=== PATIENT | female | born 1965 | race African-American/Black ===

== ENCOUNTER 2023-07-07 10:33 | Inpatient (IN) | payer BC ==
[2023-07-07 11:42] VITALS: BMI 21.8
[2023-07-07] MEDS ORDERED: IBUPROFEN 600 MG TABLET (FP) PO PRN (12:10)
[2023-07-07] MEDS ORDERED: ONDANSETRON *ODT* 4 MG TABLET SL PRN (12:10)
[2023-07-07] MEDS ORDERED: IBUPROFEN 400 MG TABLET (FP) PO PRN (12:10)
[2023-07-07] MEDS ORDERED: NALOXONE HCL (KLOXXADO) 8 MG SPRAY NS PRN (12:10)
[2023-07-07] MEDS ORDERED: BISMUTH SUBSALICYLATE 262 MG/15 ML BTL PO PRN (12:10)
[2023-07-07] MEDS ORDERED: hydrOXYzine PAMOATE 25 MG CAPSULE (FP) PO PRN (12:10)
[2023-07-07] MEDS ORDERED: ACETAMINOPHEN 325 MG TABLET (FP) PO PRN (12:10)
[2023-07-07] MEDS ORDERED: guaiFENesin 600 MG TABLET.ER (FP) PO PRN (12:10)
[2023-07-07] MEDS ORDERED: MAGNESIUM HYDROX 2400MG/30ML ORAL SUSPENSION 30 ML CUP PO PRN (12:10)
[2023-07-07] MEDS ORDERED: POLYETHYLENE GLYCOL (HEALTHYLAX) 3350 17 GM PACKET PO PRN (12:10)
[2023-07-07] MEDS ORDERED: BENZONATATE 200 MG CAPSULE PO PRN (12:10)
[2023-07-07] MEDS ORDERED: NALOXONE HCL 0.4 MG/ML VIAL IM PRN (12:10)
[2023-07-07] MEDS ORDERED: NICOTINE POLACRILEX 2 MG GUM BUC PRN (12:10)
[2023-07-07] MEDS ORDERED: BENZOCAINE/MENTHOL (CHLORASEPTIC ) LOZENGE MM PRN (12:10)
[2023-07-07] MEDS ORDERED: LOPERAMIDE HCL 2 MG CAPSULE PO PRN (12:10)
[2023-07-07 16:19] LABS: HEMATOCRIT 41.6 % (32.4-45.2); HEMOGLOBIN 14.1 GM/dL (10.7-15.3); MCH 29.6 pg (25.7-33.7); MEAN PLT VOLUME 8.2 fl (7.5-11.1); PLATELET COUNT 294 10^3/uL (134-434); RBC 4.78 M/mm3 (3.60-5.2); RDW 13.6 % (11.6-15.6); WHITE BLOOD COUNT 4.9 K/mm3 (4.0-10.0)
[2023-07-07 16:23] LABS: POTASSIUM 3.9 mmol/L (3.5-5.1)
[2023-07-07 16:25] LABS: BLOOD UREA NITROGEN 8.7 mg/dL (7-18); CALCIUM 8.5 mg/dL (8.5-10.1)
[2023-07-07 16:26] LABS: ALBUMIN 3.1 g/dl (3.4-5.0)
[2023-07-07 16:30] LABS: CREATININE 0.8 mg/dL (0.55-1.3)
[2023-07-07 16:31] LABS: BILIRUBIN,TOTAL 0.4 mg/dL (0.2-1)
[2023-07-07] MEDS: MELATONIN 5 MG TABLETS PO SCH (22:07)
[2023-07-07] MEDS: THIAMINE HCL 100 MG TABLET (FP) PO SCH (22:07)
[2023-07-07] MEDS: METHOCARBAMOL 500 MG TABLET PO PRN (22:09)
[2023-07-08] MEDS: PRENATAL VITAMINS W/ FOLIC ACID TABLET (FP) PO SCH (09:13)
[2023-07-08] MEDS: NICOTINE 14 MG/24 HOURS TOPICAL PATCH TD SCH (09:13)
[2023-07-08] MEDS ORDERED: chlordiazePOXIDE HCL 25 MG CAPSULE PO PRN (10:07)
[2023-07-08] MEDS: chlordiazePOXIDE HCL 25 MG CAPSULE PO SCH ×3 (10:50→22:16)
[2023-07-08] MEDS: METHOCARBAMOL 500 MG TABLET PO PRN ×2 (10:53→22:17)
[2023-07-08] MEDS: valACYclovir HCL 500 MG TABLET (FP) PO SCH (11:23)
[2023-07-08] MEDS: EMTRICITAB/RILPIVIRI/TENOF ALA (ODEFSEY) TABLET PO SCH (12:37)
[2023-07-08] MEDS: MAG HYDROX/AL HYDROX/SIMETH 30 ML UNIT-DOSE CUP PO PRN (16:44)
[2023-07-08] MEDS: MELATONIN 5 MG TABLETS PO SCH (22:16)
[2023-07-08] MEDS: THIAMINE HCL 100 MG TABLET (FP) PO SCH (22:16)
[2023-07-09] MEDS: chlordiazePOXIDE HCL 25 MG CAPSULE PO SCH ×4 (05:45→22:45)
[2023-07-09] MEDS: valACYclovir HCL 500 MG TABLET (FP) PO SCH (10:17)
[2023-07-09] MEDS: PRENATAL VITAMINS W/ FOLIC ACID TABLET (FP) PO SCH (10:17)
[2023-07-09] MEDS: NICOTINE 14 MG/24 HOURS TOPICAL PATCH TD SCH (10:17)
[2023-07-09] MEDS: EMTRICITAB/RILPIVIRI/TENOF ALA (ODEFSEY) TABLET PO SCH (10:17)
[2023-07-09] MEDS: METHOCARBAMOL 500 MG TABLET PO PRN (10:18)
[2023-07-09] MEDS: MAG HYDROX/AL HYDROX/SIMETH 30 ML UNIT-DOSE CUP PO PRN (19:10)
[2023-07-09] MEDS ORDERED: QUEtiapine FUMARATE 25 MG TABLET PO ONE (22:00)
[2023-07-09] MEDS: THIAMINE HCL 100 MG TABLET (FP) PO SCH (22:45)
[2023-07-09] MEDS: MELATONIN 5 MG TABLETS PO SCH (22:45)
[2023-07-10] MEDS: chlordiazePOXIDE HCL 25 MG CAPSULE PO SCH ×2 (05:22→10:35)
[2023-07-10] MEDS: valACYclovir HCL 500 MG TABLET (FP) PO SCH (09:46)
[2023-07-10] MEDS: EMTRICITAB/RILPIVIRI/TENOF ALA (ODEFSEY) TABLET PO SCH (09:46)
[2023-07-10] MEDS: PRENATAL VITAMINS W/ FOLIC ACID TABLET (FP) PO SCH (09:46)
[2023-07-10] MEDS: NICOTINE 14 MG/24 HOURS TOPICAL PATCH TD SCH ×2 (09:48→09:52)
[2023-07-10] MEDS ORDERED: LORazepam 1 MG TABLET PO PRN (10:49)
[2023-07-10] MEDS ORDERED: LORazepam 2 MG TABLET PO SCH (11:00)
[2023-07-10 11:39] VITALS: PULSE 90
[2023-07-10] MEDS ORDERED: METHOCARBAMOL 750 MG TABLET PO SCH (12:00)
[2023-07-10 14:22] VITALS: BP 137/77; RESP 18; TEMP 97.8
[2023-07-11] MEDS ORDERED: chlordiazePOXIDE HCL 10 MG CAPSULE PO PRN
[2023-07-11] MEDS ORDERED: chlordiazePOXIDE HCL 10 MG CAPSULE PO SCH (05:00)
[2023-07-11] MEDS ORDERED: LORazepam 1 MG TABLET PO SCH (05:00)
[2023-07-12] MEDS ORDERED: LORazepam 0.5 MG TABLET PO PRN
[2023-07-12] MEDS ORDERED: chlordiazePOXIDE HCL 10 MG CAPSULE PO SCH (05:00)
[2023-07-12] MEDS ORDERED: LORazepam 0.5 MG TABLET PO SCH (05:00)
[2023-07-13] MEDS ORDERED: chlordiazePOXIDE HCL 10 MG CAPSULE PO ONE (05:00)
== END 2023-07-10 15:25 | disposition left against medical advice (07) | DRG 770 ==
LOC: YASAS 10:33 → Y3N 14:41
PROVIDERS: ADMIT Allergy & Immunology; ATTEND Surgery
PROC: HZ2ZZZZ Detoxification Services for Substance Abuse Treatment (ICD-10-PCS; principal; 2023-07-07)
DX: F10.230 Alcohol dependence with withdrawal, uncomplicated (principal); F14.20 Cocaine dependence, uncomplicated; F12.20 Cannabis dependence, uncomplicated; F17.210 Nicotine dependence, cigarettes, uncomplicated; F19.24 Other psychoactive substance dependence with psychoactive substance-induced mood disorder; Z21 Asymptomatic human immunodeficiency virus [HIV] infection status; E78.5 Hyperlipidemia, unspecified; K21.9 Gastro-esophageal reflux disease without esophagitis; R76.8 Other specified abnormal immunological findings in serum; Z86.718 Personal history of other venous thrombosis and embolism; Z86.11 Personal history of tuberculosis; Z88.0 Allergy status to penicillin
CPT/HCPCS: 36415; 71046-TC-FY; 80053; 80307; 85027; 86593; 86780; 87635; 87811; 93005; 93010; Q0162

== ENCOUNTER 2023-08-27 19:16 | Inpatient (IN) | payer BC ==
[2023-08-27 20:18] VITALS: BMI 21.8
[2023-08-27] MEDS ORDERED: DICYCLOMINE HCL 10 MG CAPSULE PO PRN (21:10)
[2023-08-27] MEDS ORDERED: ONDANSETRON *ODT* 4 MG TABLET SL PRN (21:10)
[2023-08-27] MEDS ORDERED: guaiFENesin 600 MG TABLET.ER (FP) PO PRN (21:10)
[2023-08-27] MEDS ORDERED: MAGNESIUM HYDROX 2400MG/30ML ORAL SUSPENSION 30 ML CUP PO PRN (21:10)
[2023-08-27] MEDS ORDERED: NICOTINE POLACRILEX 2 MG LOZENGE BC PRN (21:10)
[2023-08-27] MEDS ORDERED: BENZONATATE 200 MG CAPSULE PO PRN (21:10)
[2023-08-27] MEDS ORDERED: POLYETHYLENE GLYCOL (HEALTHYLAX) 3350 17 GM PACKET PO PRN (21:10)
[2023-08-27] MEDS ORDERED: IBUPROFEN 400 MG TABLET (FP) PO PRN (21:10)
[2023-08-27] MEDS ORDERED: ACETAMINOPHEN 325 MG TABLET (FP) PO PRN (21:10)
[2023-08-27] MEDS ORDERED: P-EPHED 60MG/TRIPROLIDI 2.5MG TABLET PO PRN (21:10)
[2023-08-27] MEDS ORDERED: MAG HYDROX/AL HYDROX/SIMETH 30 ML UNIT-DOSE CUP PO PRN (21:10)
[2023-08-27] MEDS ORDERED: BISMUTH SUBSALICYLATE 524 MG/30 ML PO PRN (21:10)
[2023-08-27] MEDS ORDERED: LOPERAMIDE HCL 2 MG CAPSULE PO PRN (21:10)
[2023-08-27] MEDS: THIAMINE HCL 100 MG TABLET (FP) PO SCH (22:03)
[2023-08-27] MEDS: MELATONIN 5 MG TABLETS PO SCH (22:03)
[2023-08-28] MEDS: diazePAM 5 MG TABLET PO SCH ×3 (10:23→22:10)
[2023-08-28] MEDS: PRENATAL VITAMINS W/ FOLIC ACID TABLET (FP) PO SCH (10:23)
[2023-08-28] MEDS: NICOTINE 7 MG/24 HOURS TOPICAL PATCH TD SCH (10:24)
[2023-08-28] MEDS: valACYclovir HCL 500 MG TABLET (FP) PO SCH (11:03)
[2023-08-28] MEDS: EMTRICITAB/RILPIVIRI/TENOF ALA (ODEFSEY) TABLET PO SCH (11:03)
[2023-08-28 11:16] LABS: HEMATOCRIT 40.5 % (32.4-45.2); HEMOGLOBIN 13.3 GM/dL (10.7-15.3); MCH 28.2 pg (25.7-33.7); MCHC 32.8 g/dl (32.0-36.0); MEAN PLT VOLUME 7.2 fl (7.5-11.1); PLATELET COUNT 358 10^3/uL (134-434); RBC 4.71 M/mm3 (3.60-5.2); RDW 14.7 % (11.6-15.6); WHITE BLOOD COUNT 5.2 K/mm3 (4.0-10.0)
[2023-08-28 11:34] LABS: CHLORIDE 110 mmol/L (98-107); POTASSIUM 4.3 mmol/L (3.5-5.1); SODIUM 142 mmol/L (136-145)
[2023-08-28 11:37] LABS: ALBUMIN 2.9 g/dl (3.4-5.0); ANION GAP 5 mmol/L (4-13); BLOOD UREA NITROGEN 9.8 mg/dL (7-18); CO2 26 mmol/L (21-32); GLUCOSE,RANDOM 94 mg/dL (74-106)
[2023-08-28 11:39] LABS: CREATININE 0.7 mg/dL (0.55-1.3); SGOT/AST 19 U/L (15-37); SGPT/ALT 19 U/L (13-61)
[2023-08-28 11:40] LABS: TOT PROT 7.2 g/dl (6.4-8.2)
[2023-08-28 11:43] LABS: ALK PHOS 100 U/L (45-117)
[2023-08-28 11:45] LABS: BILIRUBIN,TOTAL 0.7 mg/dL (0.2-1)
[2023-08-28] MEDS: METHOCARBAMOL 500 MG TABLET PO PRN (17:19)
[2023-08-28] MEDS: MELATONIN 5 MG TABLETS PO SCH (22:10)
[2023-08-28] MEDS: THIAMINE HCL 100 MG TABLET (FP) PO SCH (22:10)
[2023-08-29] MEDS: diazePAM 5 MG TABLET PO SCH ×3 (05:23→23:03)
[2023-08-29] MEDS: EMTRICITAB/RILPIVIRI/TENOF ALA (ODEFSEY) TABLET PO SCH (07:48)
[2023-08-29] MEDS: NICOTINE 7 MG/24 HOURS TOPICAL PATCH TD SCH (10:14)
[2023-08-29] MEDS: valACYclovir HCL 500 MG TABLET (FP) PO SCH (10:14)
[2023-08-29] MEDS: PRENATAL VITAMINS W/ FOLIC ACID TABLET (FP) PO SCH (10:14)
[2023-08-29] MEDS: IBUPROFEN 600 MG TABLET (FP) PO PRN (10:16)
[2023-08-29] MEDS: METHOCARBAMOL 500 MG TABLET PO PRN (10:17)
[2023-08-29] MEDS: MELATONIN 5 MG TABLETS PO SCH (23:03)
[2023-08-29] MEDS: THIAMINE HCL 100 MG TABLET (FP) PO SCH (23:04)
[2023-08-30] MEDS: diazePAM 5 MG TABLET PO SCH ×2 (06:02→18:23)
[2023-08-30] MEDS: BENZOCAINE/MENTHOL (CHLORASEPTIC ) LOZENGE MM PRN (06:22)
[2023-08-30] MEDS: EMTRICITAB/RILPIVIRI/TENOF ALA (ODEFSEY) TABLET PO SCH (07:28)
[2023-08-30] MEDS: PRENATAL VITAMINS W/ FOLIC ACID TABLET (FP) PO SCH (10:44)
[2023-08-30] MEDS: valACYclovir HCL 500 MG TABLET (FP) PO SCH (10:45)
[2023-08-30] MEDS: NICOTINE 7 MG/24 HOURS TOPICAL PATCH TD SCH (10:45)
[2023-08-30] MEDS: hydrOXYzine PAMOATE 25 MG CAPSULE (FP) PO PRN (10:46)
[2023-08-30] MEDS: METHOCARBAMOL 500 MG TABLET PO PRN ×2 (10:46→18:23)
[2023-08-30] MEDS: IBUPROFEN 600 MG TABLET (FP) PO PRN (11:46)
[2023-08-30] MEDS: MELATONIN 5 MG TABLETS PO SCH (22:45)
[2023-08-30] MEDS: THIAMINE HCL 100 MG TABLET (FP) PO SCH (22:45)
[2023-08-31] MEDS ORDERED: diazePAM 5 MG TABLET PO ONE (06:00)
[2023-08-31] MEDS: BENZOCAINE/MENTHOL (CHLORASEPTIC ) LOZENGE MM PRN (06:14)
[2023-08-31] MEDS: IBUPROFEN 600 MG TABLET (FP) PO PRN (06:15)
[2023-08-31] MEDS: EMTRICITAB/RILPIVIRI/TENOF ALA (ODEFSEY) TABLET PO SCH (07:09)
[2023-08-31] MEDS: METHOCARBAMOL 500 MG TABLET PO PRN ×2 (09:56→22:28)
[2023-08-31] MEDS: valACYclovir HCL 500 MG TABLET (FP) PO SCH (09:56)
[2023-08-31] MEDS: PRENATAL VITAMINS W/ FOLIC ACID TABLET (FP) PO SCH (09:56)
[2023-08-31] MEDS: NICOTINE 7 MG/24 HOURS TOPICAL PATCH TD SCH (09:57)
[2023-08-31 13:21] VITALS: RESP 18
[2023-08-31] MEDS: THIAMINE HCL 100 MG TABLET (FP) PO SCH (22:28)
[2023-08-31] MEDS: MELATONIN 5 MG TABLETS PO SCH (22:28)
[2023-08-31] MEDS: hydrOXYzine PAMOATE 25 MG CAPSULE (FP) PO PRN (22:34)
[2023-09-01] MEDS: EMTRICITAB/RILPIVIRI/TENOF ALA (ODEFSEY) TABLET PO SCH (07:14)
[2023-09-01] MEDS: METHOCARBAMOL 500 MG TABLET PO PRN (07:49)
[2023-09-01 09:14] VITALS: BP 128/82; PULSE 95; TEMP 97.8
[2023-09-01] MEDS: PRENATAL VITAMINS W/ FOLIC ACID TABLET (FP) PO SCH (09:32)
[2023-09-01] MEDS: valACYclovir HCL 500 MG TABLET (FP) PO SCH (09:32)
[2023-09-01] MEDS: NICOTINE 7 MG/24 HOURS TOPICAL PATCH TD SCH (09:32)
== END 2023-09-01 10:18 | disposition home or self-care (01) | DRG 774 ==
LOC: YASAS 19:16 → Y6N 21:27
PROVIDERS: ADMIT Allergy & Immunology; ATTEND Allergy & Immunology
PROC: HZ2ZZZZ Detoxification Services for Substance Abuse Treatment (ICD-10-PCS; principal; 2023-08-27)
DX: F10.230 Alcohol dependence with withdrawal, uncomplicated (principal); F14.20 Cocaine dependence, uncomplicated; F12.20 Cannabis dependence, uncomplicated; F17.210 Nicotine dependence, cigarettes, uncomplicated; U07.1 COVID-19; B20 Human immunodeficiency virus [HIV] disease; Z86.718 Personal history of other venous thrombosis and embolism; Z86.19 Personal history of other infectious and parasitic diseases; Z86.11 Personal history of tuberculosis
CPT/HCPCS: 0241U-QW; 36415; 80053; 80307; 85027; 86593; 86780; 87635

== ENCOUNTER 2023-11-06 21:53 | Inpatient (IN) | payer BC ==
[2023-11-06 23:46] VITALS: BMI 19.9
[2023-11-07] MEDS ORDERED: MAGNESIUM HYDROX 2400MG/30ML ORAL SUSPENSION 30 ML CUP PO PRN (00:45)
[2023-11-07] MEDS ORDERED: NALOXONE HCL (KLOXXADO) 8 MG SPRAY NS PRN (00:45)
[2023-11-07] MEDS ORDERED: guaiFENesin 600 MG TABLET.ER (FP) PO PRN (00:45)
[2023-11-07] MEDS ORDERED: NALOXONE HCL 0.4 MG/ML VIAL IM PRN (00:45)
[2023-11-07] MEDS ORDERED: POLYETHYLENE GLYCOL (HEALTHYLAX) 3350 17 GM PACKET PO PRN (00:45)
[2023-11-07] MEDS ORDERED: DICYCLOMINE HCL 10 MG CAPSULE PO PRN (00:45)
[2023-11-07] MEDS ORDERED: BENZOCAINE/MENTHOL (CHLORASEPTIC ) LOZENGE MM PRN (00:45)
[2023-11-07] MEDS ORDERED: LOPERAMIDE HCL 2 MG CAPSULE PO PRN (00:45)
[2023-11-07] MEDS ORDERED: MAG HYDROX/AL HYDROX/SIMETH 30 ML UNIT-DOSE CUP PO PRN (00:45)
[2023-11-07] MEDS ORDERED: ONDANSETRON *ODT* 4 MG TABLET SL PRN (00:45)
[2023-11-07] MEDS ORDERED: IBUPROFEN 400 MG TABLET (FP) PO PRN (00:45)
[2023-11-07] MEDS ORDERED: BENZONATATE 200 MG CAPSULE PO PRN (00:45)
[2023-11-07] MEDS ORDERED: METHOCARBAMOL 500 MG TABLET ONE (02:05)
[2023-11-07] MEDS ORDERED: ACETAMINOPHEN 325 MG TABLET (FP) ONE (02:05)
[2023-11-07] MEDS: ACETAMINOPHEN 325 MG TABLET (FP) PO PRN (02:09)
[2023-11-07] MEDS: METHOCARBAMOL 500 MG TABLET PO PRN (02:09)
[2023-11-07] MEDS: NICOTINE 14 MG/24 HOURS TOPICAL PATCH TD SCH (09:44)
[2023-11-07] MEDS: PRENATAL VITAMINS W/ FOLIC ACID TABLET (FP) PO SCH (09:44)
[2023-11-07] MEDS: NICOTINE POLACRILEX 2 MG GUM BUC PRN (09:45)
[2023-11-07] MEDS: IBUPROFEN 600 MG TABLET (FP) PO PRN (09:46)
[2023-11-07] MEDS ORDERED: diazePAM 5 MG TABLET PO PRN (10:34)
[2023-11-07] MEDS: diazePAM 5 MG TABLET PO SCH (10:57)
[2023-11-07 11:33] LABS: HEMATOCRIT 40.3 % (32.4-45.2); HEMOGLOBIN 13.1 GM/dL (10.7-15.3); MCH 28.8 pg (25.7-33.7); MCHC 32.5 g/dl (32.0-36.0); MEAN CELL VOLUME 88.6 fl (80-96); MEAN PLT VOLUME 8.4 fl (7.5-11.1); PLATELET COUNT 251 10^3/uL (134-434); RBC 4.55 M/mm3 (3.60-5.2); RDW 14.9 % (11.6-15.6); WHITE BLOOD COUNT 3.8 K/mm3 (4.0-10.0)
[2023-11-07 11:41] LABS: CHLORIDE 104 mmol/L (98-107); POTASSIUM 3.3 mmol/L (3.5-5.1); SODIUM 140 mmol/L (136-145)
[2023-11-07 11:54] LABS: ALBUMIN 3.2 g/dl (3.4-5.0); ANION GAP 3 mmol/L (4-13); BLOOD UREA NITROGEN 16.3 mg/dL (7-18); CO2 32 mmol/L (21-32); GLUCOSE,RANDOM 100 mg/dL (74-106); SGPT/ALT 27 U/L (13-61)
[2023-11-07 11:55] LABS: CREATININE 0.8 mg/dL (0.55-1.3)
[2023-11-07 11:56] LABS: BILIRUBIN,TOTAL 0.6 mg/dL (0.2-1); TOT PROT 6.9 g/dl (6.4-8.2)
[2023-11-07 11:57] LABS: ALK PHOS 129 U/L (45-117); SGOT/AST 26 U/L (15-37)
[2023-11-07] MEDS: valACYclovir HCL 500 MG TABLET (FP) PO SCH (17:39)
[2023-11-07] MEDS: EMTRICITAB/RILPIVIRI/TENOF ALA (ODEFSEY) TABLET PO SCH (19:08)
[2023-11-07] MEDS: THIAMINE HCL 100 MG TABLET (FP) PO SCH (22:37)
[2023-11-07] MEDS: QUEtiapine FUMARATE 50 MG TABLET PO SCH (22:37)
[2023-11-07] MEDS: MELATONIN 5 MG TABLETS PO SCH (22:37)
[2023-11-07] MEDS: BISMUTH SUBSALICYLATE 524 MG/30 ML PO PRN (22:38)
[2023-11-08] MEDS: POTASSIUM CHLORIDE ORAL LIQUID 20 MEQ/15 ML PO ONE (11:26)
[2023-11-09] MEDS: diazePAM 5 MG TABLET PO SCH (05:53)
[2023-11-09 10:00] VITALS: RESP 16
[2023-11-10] MEDS: diazePAM 5 MG TABLET PO SCH (05:41)
[2023-11-10 06:46] VITALS: BP 146/70; PULSE 73; TEMP 97.6
[2023-11-11] MEDS ORDERED: diazePAM 5 MG TABLET PO ONE (06:00)
== END 2023-11-10 07:59 | disposition home or self-care (01) | DRG 774 ==
LOC: YASAS 21:53 → Y6N 11-07 01:47
PROVIDERS: ADMIT Allergy & Immunology; ATTEND Surgery
PROC: HZ2ZZZZ Detoxification Services for Substance Abuse Treatment (ICD-10-PCS; principal; 2023-11-07)
DX: F10.230 Alcohol dependence with withdrawal, uncomplicated (principal); F14.20 Cocaine dependence, uncomplicated; F12.20 Cannabis dependence, uncomplicated; F17.210 Nicotine dependence, cigarettes, uncomplicated; F19.282 Other psychoactive substance dependence with psychoactive substance-induced sleep disorder; F19.280 Other psychoactive substance dependence with psychoactive substance-induced anxiety disorder; F32.A Depression, unspecified; B20 Human immunodeficiency virus [HIV] disease; E87.6 Hypokalemia; K21.9 Gastro-esophageal reflux disease without esophagitis; R76.11 Nonspecific reaction to tuberculin skin test without active tuberculosis; Z79.899 Other long term (current) drug therapy; Z86.718 Personal history of other venous thrombosis and embolism; Z86.19 Personal history of other infectious and parasitic diseases; Z99.89 Dependence on other enabling machines and devices; Z88.0 Allergy status to penicillin
CPT/HCPCS: 36415; 80053; 80305; 80307; 84132; 85027

== ENCOUNTER 2024-04-16 12:03 | Inpatient (IN) | payer BC ==
[2024-04-16 12:44] VITALS: BMI 18.7
[2024-04-16] MEDS ORDERED: BENZONATATE 200 MG CAPSULE PO PRN (13:16)
[2024-04-16] MEDS ORDERED: NICOTINE POLACRILEX 2 MG LOZENGE BC PRN (13:16)
[2024-04-16] MEDS ORDERED: LOPERAMIDE HCL 2 MG CAPSULE PO PRN (13:16)
[2024-04-16] MEDS ORDERED: NICOTINE POLACRILEX 2 MG GUM BUC PRN (13:16)
[2024-04-16] MEDS ORDERED: MAGNESIUM HYDROX 2400MG/30ML ORAL SUSPENSION 30 ML CUP PO PRN (13:16)
[2024-04-16] MEDS ORDERED: POLYETHYLENE GLYCOL (HEALTHYLAX) 3350 17 GM PACKET PO PRN (13:16)
[2024-04-16] MEDS ORDERED: IBUPROFEN 400 MG TABLET (FP) PO PRN (13:16)
[2024-04-16] MEDS ORDERED: guaiFENesin 600 MG TABLET.ER (FP) PO PRN (13:16)
[2024-04-16] MEDS ORDERED: P-EPHED 60MG/TRIPROLIDI 2.5MG TABLET PO PRN (13:16)
[2024-04-16] MEDS ORDERED: BENZOCAINE/MENTHOL (CHLORASEPTIC ) LOZENGE MM PRN (13:16)
[2024-04-16] MEDS: THIAMINE 100 MG TABLET PO SCH (21:36)
[2024-04-16] MEDS: MELATONIN 5 MG TABLETS PO SCH (21:38)
[2024-04-17] MEDS: IBUPROFEN 600 MG TABLET (FP) PO PRN (08:09)
[2024-04-17] MEDS: ASPIRIN 81 MG CHEWABLE TABLETS PO SCH (10:05)
[2024-04-17] MEDS: PRENATAL VITAMINS W/ FOLIC ACID TABLET (FP) PO SCH (10:05)
[2024-04-17] MEDS: valACYclovir HCL 500 MG TABLET (FP) PO SCH (10:05)
[2024-04-17 11:15] LABS: CHLORIDE 110 mmol/L (98-107); POTASSIUM 4.1 mmol/L (3.5-5.1); SODIUM 142 mmol/L (136-145)
[2024-04-17 11:20] LABS: ALBUMIN 2.7 g/dl (3.4-5.0); BLOOD UREA NITROGEN 10.4 mg/dL (7-18); CALCIUM 9.2 mg/dL (8.5-10.1); HEMATOCRIT 38.6 % (32.4-45.2); HEMOGLOBIN 12.8 GM/dL (10.7-15.3); MCH 28.7 pg (25.7-33.7); MCHC 33.1 g/dl (32.0-36.0); MEAN CELL VOLUME 86.8 fl (80-96); MEAN PLT VOLUME 7.5 fl (7.5-11.1); PLATELET COUNT 277 10^3/uL (134-434); RBC 4.45 M/mm3 (3.60-5.2); RDW 13.6 % (11.6-15.6); SGPT/ALT 17 U/L (13-61); WHITE BLOOD COUNT 4.3 K/mm3 (4.0-10.0)
[2024-04-17 11:21] LABS: ANION GAP 5 mmol/L (4-13); CO2 27 mmol/L (21-32); GLUCOSE,RANDOM 107 mg/dL (74-106)
[2024-04-17 11:24] LABS: CREATININE 0.7 mg/dL (0.55-1.3); SGOT/AST 16 U/L (15-37)
[2024-04-17 11:26] LABS: ALK PHOS 102 U/L (45-117); BILIRUBIN,TOTAL 0.2 mg/dL (0.2-1)
[2024-04-17] MEDS: FLUoxetine HCL 10 MG TABLET PO SCH (16:36)
[2024-04-17] MEDS: QUEtiapine FUMARATE 50 MG TABLET PO SCH (21:18)
[2024-04-18] MEDS: DOXYCYCLINE HYCLATE 100 MG CAPSULE PO SCH (17:39)
[2024-04-18] MEDS ORDERED: QUEtiapine FUMARATE 25 MG TABLET ONE (20:31)
[2024-04-18] MEDS: MICONAZOLE NITRATE 2% VAGINAL CREAM 45 GM TUBE VG SCH (21:15)
[2024-04-19] MEDS: ACETAMINOPHEN 325 MG TABLET (FP) PO PRN (09:36)
[2024-04-19] MEDS: GABAPENTIN 100 MG CAPSULE PO SCH (12:21)
[2024-04-19] MEDS: BACLOFEN 10 MG TABLET (FP) PO SCH (15:10)
[2024-04-19] MEDS: BICTEGRAV/EMTRICIT/TENOFOV (BIKTARVY) 50-200-25 MG TABLET PO SCH (15:11)
[2024-04-19 16:36] LABS: EPI CELLS >36 /uL (0-25.1); HYALINE CASTS 1 /uL (0-3.1); PH,URINE 7.5 (5.0-8.0); URINE APPEARANCE CLOUDY; URINE BACTERIA 169 /uL (0-1359); URINE BILIRUBIN NEGATIVE (NEGATIVE); URINE COLOR YELLOW; URINE GLUCOSE (UA) NEGATIVE (NEGATIVE); URINE KETONE NEGATIVE (NEGATIVE); URINE LEUK ESTERASE 3+ (NEGATIVE); URINE NITRITE NEGATIVE (NEGATIVE); URINE PROTEIN NEGATIVE (NEGATIVE); URINE RBC 31 /uL (0-23.9); URINE UROBILINOGEN 0.2 mg/dL (0.2-1.0); URINE WBC 39 /uL (0-25.8)
[2024-04-19] MEDS: MAG HYDROX/AL HYDROX/SIMETH 30 ML UNIT-DOSE CUP PO PRN (17:53)
[2024-04-19] MEDS: DOXYCYCLINE HYCLATE 100 MG TABLET PO SCH (18:03)
[2024-04-19] MEDS: hydrOXYzine PAMOATE 25 MG CAPSULE (FP) PO PRN (21:34)
[2024-04-20] MEDS: BACLOFEN 10 MG TABLET (FP) PO SCH (10:44)
[2024-04-20] MEDS: FLUoxetine HCL 10 MG CAPSULE PO SCH (10:44)
[2024-04-20] MEDS: LIDOCAINE HCL 5% TOP OINTMENT 50 GM TUBE TP PRN (10:45)
[2024-04-20 17:03] LABS: EPI CELLS 24 /uL (0-25.1); HYALINE CASTS 2 /uL (0-3.1); URINE APPEARANCE CLEAR; URINE BACTERIA 226 /uL (0-1359); URINE BILIRUBIN NEGATIVE (NEGATIVE); URINE COLOR YELLOW; URINE GLUCOSE (UA) NEGATIVE (NEGATIVE); URINE KETONE NEGATIVE (NEGATIVE); URINE LEUK ESTERASE 3+ (NEGATIVE); URINE NITRITE NEGATIVE (NEGATIVE); URINE PROTEIN NEGATIVE (NEGATIVE); URINE UROBILINOGEN 0.2 mg/dL (0.2-1.0); URINE WBC 302 /uL (0-25.8)
[2024-04-20 17:46] LABS: URINE RBC 21 /uL (0-23.9)
[2024-04-21] MEDS: metroNIDAZOLE 250 MG TABLET PO SCH (12:12)
[2024-04-21] MEDS: BICTEGRAV/EMTRICIT/TENOFOV (BIKTARVY) 50-200-25 MG TABLET PO SCH (12:12)
[2024-04-22 07:02] VITALS: RESP 18; TEMP 97.8
[2024-04-22 11:23] VITALS: BP 111/68; PULSE 87
== END 2024-04-22 11:25 | disposition home or self-care (01) | DRG 772 ==
LOC: YASAS 12:03 → Y5N 14:09
PROVIDERS: ADMIT Psychiatry & Neurology Pain Medicine; ATTEND Psychiatry & Neurology Pain Medicine
PROC: HZ42ZZZ Group Counseling for Substance Abuse Treatment, Cognitive-Behavioral (ICD-10-PCS; principal; 2024-04-16)
DX: F14.20 Cocaine dependence, uncomplicated (principal); F10.20 Alcohol dependence, uncomplicated; F12.20 Cannabis dependence, uncomplicated; F17.210 Nicotine dependence, cigarettes, uncomplicated; F31.9 Bipolar disorder, unspecified; Z21 Asymptomatic human immunodeficiency virus [HIV] infection status; K21.9 Gastro-esophageal reflux disease without esophagitis; M54.30 Sciatica, unspecified side; N39.0 Urinary tract infection, site not specified; B96.89 Other specified bacterial agents as the cause of diseases classified elsewhere; Z86.718 Personal history of other venous thrombosis and embolism; Z86.11 Personal history of tuberculosis; Z88.0 Allergy status to penicillin; Z59.00 Homelessness unspecified
CPT/HCPCS: 36415; 73630-TC-RT-FY; 80053; 80305; 80307; 81003; 85027; 86593; 86780; 87086; 87491; 87591; 87661; 93005; 93010; J0475

== ENCOUNTER 2024-05-09 10:40 | Inpatient (IN) | payer BC ==
[2024-05-09 11:05] VITALS: BMI 18.6
[2024-05-09] MEDS ORDERED: BENZONATATE 200 MG CAPSULE PO PRN (12:12)
[2024-05-09] MEDS ORDERED: POLYETHYLENE GLYCOL (HEALTHYLAX) 3350 17 GM PACKET PO PRN (12:12)
[2024-05-09] MEDS ORDERED: IBUPROFEN 400 MG TABLET (FP) PO PRN (12:12)
[2024-05-09] MEDS ORDERED: guaiFENesin 600 MG TABLET.ER (FP) PO PRN (12:12)
[2024-05-09] MEDS ORDERED: BENZOCAINE/MENTHOL (CHLORASEPTIC ) LOZENGE MM PRN (12:12)
[2024-05-09] MEDS ORDERED: LOPERAMIDE HCL 2 MG CAPSULE PO PRN (12:12)
[2024-05-09] MEDS ORDERED: MAGNESIUM HYDROX 2400MG/30ML ORAL SUSPENSION 30 ML CUP PO PRN (12:12)
[2024-05-09] MEDS ORDERED: NICOTINE POLACRILEX 2 MG LOZENGE BC PRN (12:12)
[2024-05-09] MEDS: ACETAMINOPHEN 325 MG TABLET (FP) PO PRN (13:40)
[2024-05-09] MEDS: hydrOXYzine PAMOATE 25 MG CAPSULE (FP) PO PRN (13:41)
[2024-05-09] MEDS ORDERED: hydrOXYzine PAMOATE 25 MG CAPSULE (FP) PO ONE (13:42)
[2024-05-09] MEDS ORDERED: ACETAMINOPHEN 325 MG TABLET (FP) ONE (13:42)
[2024-05-09] MEDS: THIAMINE 100 MG TABLET PO SCH (22:38)
[2024-05-09] MEDS: MELATONIN 5 MG TABLETS PO SCH (22:38)
[2024-05-10] MEDS: PRENATAL VITAMINS W/ FOLIC ACID TABLET (FP) PO SCH (10:33)
[2024-05-10] MEDS: ASPIRIN 81 MG CHEWABLE TABLETS PO SCH (11:30)
[2024-05-10] MEDS: FLUoxetine HCL 10 MG CAPSULE PO SCH (11:30)
[2024-05-10] MEDS: BACLOFEN 10 MG TABLET (FP) PO SCH (11:30)
[2024-05-10] MEDS: BICTEGRAV/EMTRICIT/TENOFOV (BIKTARVY) 50-200-25 MG TABLET PO SCH (11:30)
[2024-05-10] MEDS: valACYclovir HCL 500 MG TABLET (FP) PO SCH (11:30)
[2024-05-10] MEDS: GABAPENTIN 100 MG CAPSULE PO SCH (14:48)
[2024-05-10] MEDS: QUEtiapine FUMARATE 50 MG TABLET PO SCH (22:00)
[2024-05-11] MEDS: IBUPROFEN 600 MG TABLET (FP) PO PRN (04:26)
[2024-05-12 12:13] LABS: EPI CELLS 22 /uL (0-25.1); HYALINE CASTS 0 /uL (0-3.1); PH,URINE 5.5 (5.0-8.0); URINE APPEARANCE CLEAR; URINE BACTERIA 274 /uL (0-1359); URINE BILIRUBIN NEGATIVE (NEGATIVE); URINE COLOR YELLOW; URINE GLUCOSE (UA) NEGATIVE (NEGATIVE); URINE KETONE NEGATIVE (NEGATIVE); URINE LEUK ESTERASE TRACE (NEGATIVE); URINE NITRITE NEGATIVE (NEGATIVE); URINE PROTEIN NEGATIVE (NEGATIVE); URINE RBC 2 /uL (0-23.9); URINE UROBILINOGEN 0.2 mg/dL (0.2-1.0); URINE WBC 30 /uL (0-25.8)
[2024-05-12] MEDS: GABAPENTIN 400 MG CAPSULE PO SCH (14:52)
[2024-05-12] MEDS: LIDOCAINE 2.5%/PRILOCAINE 2.5% 30 GRAM TUBE TP PRN (21:13)
[2024-05-13] MEDS: BICTEGRAV/EMTRICIT/TENOFOV (BIKTARVY) 50-200-25 MG TABLET PO SCH (06:04)
[2024-05-13] MEDS: GABAPENTIN 300 MG CAPSULE PO SCH (10:47)
[2024-05-13] MEDS: MAG HYDROX/AL HYDROX/SIMETH 30 ML UNIT-DOSE CUP PO PRN (17:02)
[2024-05-13] MEDS: NICOTINE POLACRILEX 2 MG GUM BUC PRN (17:43)
[2024-05-14] MEDS: BICTEGRAV/EMTRICIT/TENOFOV (BIKTARVY) 50-200-25 MG TABLET PO SCH (10:23)
[2024-05-14] MEDS ORDERED: NALOXONE (NYS OPIOID OVERDOSE PROGRAM) 4 MG/0.1 ML SPRAY NS PRN (15:01)
[2024-05-14] MEDS: GABAPENTIN 300 MG CAPSULE PO SCH (21:18)
[2024-05-16 07:21] VITALS: RESP 18; TEMP 96.9
[2024-05-16 10:54] VITALS: BP 101/65; PULSE 76
== END 2024-05-16 23:11 | disposition other institution (70) | DRG 772 ==
LOC: YASAS 10:40 → Y3NR 13:23 → Y5N 05-11 11:58
PROVIDERS: ADMIT Psychiatry & Neurology Pain Medicine; ATTEND Psychiatry & Neurology Pain Medicine
PROC: HZ42ZZZ Group Counseling for Substance Abuse Treatment, Cognitive-Behavioral (ICD-10-PCS; principal; 2024-05-09)
DX: F14.20 Cocaine dependence, uncomplicated (principal); F10.20 Alcohol dependence, uncomplicated; F12.20 Cannabis dependence, uncomplicated; F17.210 Nicotine dependence, cigarettes, uncomplicated; F31.9 Bipolar disorder, unspecified; F19.282 Other psychoactive substance dependence with psychoactive substance-induced sleep disorder; F19.24 Other psychoactive substance dependence with psychoactive substance-induced mood disorder; Z21 Asymptomatic human immunodeficiency virus [HIV] infection status; A60.00 Herpesviral infection of urogenital system, unspecified; K21.9 Gastro-esophageal reflux disease without esophagitis; E78.5 Hyperlipidemia, unspecified; R76.11 Nonspecific reaction to tuberculin skin test without active tuberculosis; Z86.718 Personal history of other venous thrombosis and embolism; Z79.82 Long term (current) use of aspirin
CPT/HCPCS: 80305; 80307; 81003; 87635; 87811; J0475

== ENCOUNTER 2024-05-16 14:27 | Observation (INO) | payer BC ==
[2024-05-16 15:29] LABS: INR 0.81 (0.83-1.09); PROTHROMBIN TIME (PATIENT) 9.4 SEC (9.7-13.0)
[2024-05-16 15:31] LABS: ACTIVATED PTT 26.4 SECONDS (25.2-36.5)
[2024-05-16 15:42] LABS: POTASSIUM 4.9 mmol/L (3.5-5.1)
[2024-05-16 15:43] LABS: CALCIUM 9.7 mg/dL (8.5-10.1)
[2024-05-16 15:44] LABS: ALBUMIN 3.2 g/dl (3.4-5.0)
[2024-05-16 15:45] LABS: BLOOD UREA NITROGEN 22.4 mg/dL (7-18)
[2024-05-16 15:47] LABS: CREATININE 0.8 mg/dL (0.55-1.3)
[2024-05-16 15:49] LABS: TOT PROT 7.8 g/dl (6.4-8.2)
[2024-05-16 15:59] LABS: BILIRUBIN,TOTAL 0.3 mg/dL (0.2-1)
[2024-05-16] MEDS ORDERED: ACETAMINOPHEN INJECTION 100 ML ONE (16:17)
[2024-05-16] MEDS: ACETAMINOPHEN 1000 MG/100 ML BAG IVPB ONE (16:26)
[2024-05-16 16:49] LABS: BASO % 0.9 % (0-2.0); EOS % 1.9 % (0-4.5); HEMATOCRIT 35.6 % (32.4-45.2); HEMOGLOBIN 11.8 GM/dL (10.7-15.3); LYMPH % 31.3 % (8-40); MCH 28.5 pg (25.7-33.7); MCHC 33.2 g/dl (32.0-36.0); MEAN CELL VOLUME 85.9 fl (80-96); MEAN PLT VOLUME 6.5 fl (7.5-11.1); MONO % 7.8 % (3.8-10.2); NEUT % 58.1 % (42.8-82.8); PLATELET COUNT 253 10^3/uL (134-434); RBC 4.15 M/mm3 (3.60-5.2); RDW 14.3 % (11.6-15.6); WHITE BLOOD COUNT 5.7 K/mm3 (4.0-10.0)
[2024-05-16 17:35] LABS: URINE APPEARANCE CLEAR; URINE BILIRUBIN NEGATIVE (NEGATIVE); URINE COLOR COLORLESS; URINE GLUCOSE (UA) NEGATIVE (NEGATIVE); URINE KETONE NEGATIVE (NEGATIVE); URINE PROTEIN N (NEGATIVE); URINE UROBILINOGEN 1 mg/dL (0.2-1.0)
[2024-05-16 17:36] LABS: URINE LEUK ESTERASE NEGATIVE (NEGATIVE); URINE NITRITE NEGATIVE (NEGATIVE)
[2024-05-16 23:15] VITALS: BMI 21.7
[2024-05-17] MEDS: ACETAMINOPHEN 1000 MG/100 ML BAG IVPB PRN (00:35)
[2024-05-17] MEDS: GABAPENTIN 100 MG CAPSULE PO SCH (05:47)
[2024-05-17 06:14] LABS: HEMATOCRIT 38.6 % (32.4-45.2); HEMOGLOBIN 12.5 GM/dL (10.7-15.3); MCHC 32.5 g/dl (32.0-36.0); MEAN CELL VOLUME 86.4 fl (80-96); MEAN PLT VOLUME 6.6 fl (7.5-11.1); PLATELET COUNT 248 10^3/uL (134-434); RBC 4.47 M/mm3 (3.60-5.2); RDW 14.2 % (11.6-15.6)
[2024-05-17 06:32] LABS: POTASSIUM 4.5 mmol/L (3.5-5.1)
[2024-05-17 06:36] LABS: ALBUMIN 3.1 g/dl (3.4-5.0); BLOOD UREA NITROGEN 21.5 mg/dL (7-18); CALCIUM 9.6 mg/dL (8.5-10.1)
[2024-05-17 06:37] LABS: MAGNESIUM 2.3 mg/dL (1.8-2.4); PHOSPHOROUS 5.6 mg/dL (2.5-4.9)
[2024-05-17 06:39] LABS: BILIRUBIN,TOTAL 0.5 mg/dL (0.2-1); TOT PROT 7.4 g/dl (6.4-8.2)
[2024-05-17 06:40] LABS: CREATININE 0.8 mg/dL (0.55-1.3)
[2024-05-17] MEDS ORDERED: ACETAMINOPHEN/CAFFEINE/BUTALBITAL 1 TAB PO PRN (09:06)
[2024-05-17] MEDS: ASPIRIN 81 MG CHEWABLE TABLETS PO SCH (10:30)
[2024-05-17] MEDS: ENOXAPARIN NA (PORCINE) 40 MG/0.4 ML DISP.SYRIN SQ SCH (10:30)
[2024-05-17] MEDS: BACLOFEN 10 MG TABLET (FP) PO SCH (10:31)
[2024-05-17] MEDS: valACYclovir HCL 500 MG TABLET (FP) PO SCH (10:31)
[2024-05-17] MEDS: BICTEGRAV/EMTRICIT/TENOFOV (BIKTARVY) 50-200-25 MG TABLET PO SCH (10:32)
[2024-05-17] MEDS: FLUoxetine HCL 10 MG CAPSULE PO SCH (11:45)
[2024-05-17] MEDS ORDERED: QUEtiapine FUMARATE 25 MG TABLET ONE (21:40)
[2024-05-17] MEDS: QUEtiapine FUMARATE 50 MG TABLET PO SCH (21:41)
[2024-05-17 23:30] VITALS: RESP 18
[2024-05-18 08:15] LABS: BASO % 0.6 % (0-2.0); EOS % 1.8 % (0-4.5); HEMOGLOBIN 12.9 GM/dL (10.7-15.3); LYMPH % 39.9 % (8-40); MCH 28.1 pg (25.7-33.7); MCHC 32.2 g/dl (32.0-36.0); MEAN CELL VOLUME 87.2 fl (80-96); MEAN PLT VOLUME 7.1 fl (7.5-11.1); MONO % 9.2 % (3.8-10.2); NEUT % 48.5 % (42.8-82.8); PLATELET COUNT 265 10^3/uL (134-434); RBC 4.58 M/mm3 (3.60-5.2); RDW 14.1 % (11.6-15.6); WHITE BLOOD COUNT 3.9 K/mm3 (4.0-10.0)
[2024-05-18 08:22] LABS: POTASSIUM 4.5 mmol/L (3.5-5.1)
[2024-05-18 08:24] LABS: ALBUMIN 3.3 g/dl (3.4-5.0); CALCIUM 9.4 mg/dL (8.5-10.1); MAGNESIUM 2.2 mg/dL (1.8-2.4)
[2024-05-18 08:25] LABS: BLOOD UREA NITROGEN 18.4 mg/dL (7-18)
[2024-05-18 08:27] LABS: CREATININE 0.8 mg/dL (0.55-1.3)
[2024-05-18 08:29] LABS: BILIRUBIN,TOTAL 0.5 mg/dL (0.2-1); TOT PROT 8.1 g/dl (6.4-8.2)
[2024-05-18 14:31] VITALS: BP 92/73; PULSE 72; TEMP 98.8
== END 2024-05-18 16:25 | disposition home or self-care (01) ==
LOC: JER 14:27 → JERBED 19:26 → UNDOADMOB 19:26 → OBSVTOIN 21:21 → INTOOBSV 21:21 → JERBED 22:42 → J4S 22:42 → JERBED 05-17 09:08 → J4S 05-17 09:08
PROVIDERS: ADMIT Internal Medicine; ATTEND Nurse Practitioner Acute Care
PROC: 3E033NZ Introduction of Analgesics, Hypnotics, Sedatives into Peripheral Vein, Percutaneous Approach (ICD-10-PCS; principal; 2024-05-17)
DX: G45.9 Transient cerebral ischemic attack, unspecified (principal); F10.20 Alcohol dependence, uncomplicated; F31.9 Bipolar disorder, unspecified; F14.20 Cocaine dependence, uncomplicated; F12.20 Cannabis dependence, uncomplicated; B20 Human immunodeficiency virus [HIV] disease; K21.9 Gastro-esophageal reflux disease without esophagitis; B02.9 Zoster without complications; F17.200 Nicotine dependence, unspecified, uncomplicated; Z86.718 Personal history of other venous thrombosis and embolism
CPT/HCPCS: 36415; 70450-TC; 70496-TC; 70498-TC; 70551-TC; 71045-TC-FY; 80053; 80061; 81003; 82550; 82962; 83036; 83735; 84100; 84443; 84484; 85025; 85027; 85610; 85730; 86850; 86900; 86901; 93005; 93010; 93306-TC; 93971-TC; 96374; 96376; 97116-GP; 97161-GP; 99285-25; G0378; J0131; J0475